=== PATIENT | female | born 1970 | race Caucasian/White ===

== ENCOUNTER → 2019-08-18 | Outpatient (CLI) | payer BC ==
[~2019-08-18] MED LIST: ALLERGY RELIEF10 M1 PO; AMOXICILLIN 8751 TAB PO; BUMEX2 MG PO; BYSTOLIC5 MG PO; FASTIN30 MG PO; FLEXERIL 1010 MG/TAB PO; MUCINEX DM 30 M1 TE1 PO; MULTIPLE VITAMI1 CAP PO; PHENTERMINE15 MG PO; SYNTHROID0.15 MG PO; TOPAMAX 25MG25 M1 PO; VITAMIN D 50,1.25 MG PO; VITAMIN D1000 IU PO
== END ==
LOC: MC.RAD 07-24 07:30
DX: Z12.31 Encounter for screening mammogram for malignant neoplasm of breast (principal)

== ENCOUNTER → 2021-05-21 | Outpatient (CLI) | payer BC | LOC: MC.RAD 08:09 | DX: Z12.31 Encounter for screening mammogram for malignant neoplasm of breast (principal) ==

== ENCOUNTER → 2022-07-24 | Outpatient (CLI) | payer BC | LOC: MC.RAD 07:17 | DX: Z12.31 Encounter for screening mammogram for malignant neoplasm of breast (principal) ==